=== PATIENT | female | born 1950 | race Caucasian/White ===

== ENCOUNTER 2022-12-28 15:03 | Emergency (ER) | payer MEDICARE, OTHER, SELFPAY ==
--- NOTE | 2022-12-28 15:34 | ED.SKABFB ---
HPI - Skin/Abscess/Foreign Bdy General Chief complaint: Skin/Abscess/Foreign Body Stated complaint: Rash On Body Time Seen by Provider: 12/28/22 15:35 Source: patient Mode of arrival: ambulatory Limitations: no limitations History of Present Illness HPI narrative: 72-year-old female presented for complaint of red painful bumpy rash to the right side her neck and ear, onset yesterday. She endorses prior to the rash she had pain in the sites for about 2 days. Pain is described as electric and burning, intermittent. She denies headache, vision changes, nausea, vomiting, fevers or chills. She denies any other locations of rash on her body. She denies changes to lotion, soap, detergent etc.. She did start amoxicillin for possible ear infection per PCP. Related Data Home Medications Medication Instructions Recorded Confirmed alendronate 70 mg tablet 70 mg PO MONTHLY 12/28/22 12/28/22 amoxicillin 500 mg capsule 500 mg PO BID 12/28/22 12/28/22 atorvastatin 40 mg tablet 40 mg PO DAILY 12/28/22 12/28/22 hydrochlorothiazide 25 mg tablet 25 mg PO DAILY 12/28/22 12/28/22 omeprazole 20 mg capsule,delayed 20 mg PO DAILY 12/28/22 12/28/22 release Allergies Allergy/AdvReac Type Severity Reaction Status Date / Time ibuprofen Allergy Unknown Rash Verified 12/28/22 15:27 Review of Systems Review of Systems: CONSTITUTIONAL: Denies body aches, fever, chills, or sweats. EYES: Denies visual changes, redness, or discharge. ENT: Denies rhinorrhea, congestion CARDIOVASCULAR: Denies chest pain, palpitations, or edema. RESPIRATORY: Denies cough or dyspnea. GASTROINTESTINAL: Denies abdominal pain, nausea, vomiting, or diarrhea. SKIN: per HPI MUSCULOSKELETAL: Denies back pain, joint pain, or myalgia. NEUROLOGIC: Denies headache, numbness, tingling, or weakness. [facility] Past Medical History Medical History (Updated 12/28/22 @ 15:48 by Daphne Reddy APRN) No pertinent past medical history Family History Family History Mother Family history of malignant neoplasm of breast in first degree relative Other Family history of alcoholism Family history of arthritis Hypertension Social History Social History Smoking status: Never smoker Alcohol intake: never Comments At time of signature, I have reviewed and agree with nursing past medical, surgical, social and family history unless otherwise noted. Please see nursing chart for further information. There is no relevant family history pertinent to the presenting complaint Exam Narrative: GENERAL: Well-appearing HEAD: Normocephalic, atraumatic. EYES: conjunctivae clear, and EOMI. ENT: Mucous membranes moist. Oropharynx without edema, erythema or lesions. NECK: Supple. No lymphadenopathy CHEST: Clear to auscultation. HEART: Regular rate and rhythm. SKIN: Warm, dry. Erythematous vesicular lesions to right neck, right pre - and post- auricular area; sites are tender, c/w zoster, no active drainage NEURO: Alert and oriented x3. Course Course Emergency Course: Patient is aware of diagnosis, understands and agrees to treatment plan. Anticipatory guidance given. Patient agrees to follow-up as directed and is aware of reasons to seek care at the emergency department. Portions of this record may have been created with voice recognition software Level of Care: Express Care Visit Vital Signs Vital signs: Reviewed MDM - Skin/Abscess/Foreign Bdy MDM Narrative Medical decision making narrative: Patient will stop amoxicillin. Advised supportive measures and signs/symptoms to go to the ER. Pt is appropriate for outpt treatment and f/u. Instructed patient to go to nearest ER immediately for any worsening symptoms including but not limited to: fever, spreading rash to eye, chest pain, trouble breathing, or any symptoms concerning to the patient. Differenti
[2022-12-28 15:58] VITALS: BP 118/74; PULSE 78; RESP 18; TEMP 36.6; O2SAT 99
== END 2022-12-28 15:48 | disposition home or self-care (01) ==
PROVIDERS: Emergency Provider Nurse Practitioner Family; PCP Physician Assistant Medical
DX: B02.9 Zoster without complications (principal); E78.00 Pure hypercholesterolemia, unspecified; I10 Essential (primary) hypertension; K21.9 Gastro-esophageal reflux disease without esophagitis; M81.0 Age-related osteoporosis without current pathological fracture
CPT/HCPCS: 99213; G0463